=== PATIENT | female | born 1995 | race Caucasian/White ===

== ENCOUNTER → 2019-12-23 17:10 | Observation (INO) | END | disposition home or self-care (01) | LOC: 1NENULAB | PROVIDERS: ADMIT Obstetrics & Gynecology; ATTEND Obstetrics & Gynecology ==

== ENCOUNTER 2020-01-05 02:55 | Inpatient (IN) ==
[~2020-01-05 02:55] MED LIST: *HR* FentaNYL (PF) 100 MCG/2 ML VIAL IVP PRN; Famotidine 20 MG/2 ML VIAL IVP PRN; Lidocaine 1% 20 ML MDV INFILT PRN; Metoclopramide 10 MG/2 ML VIAL IVP PRN; Naloxone 0.4 MG/ML INJ IVP PRN; Ondansetron 4 MG/2 ML VIAL IVP PRN
[2020-01-05] MEDS ORDERED: Oxytocin 20 units/ LR 1000 mL 20 UNIT/1,000 ML BAG IVC SCH (03:00)
[2020-01-05 03:21] LABS: Basophils % 0.3 %; Eosinophils # 0.1 K/mcL (0.0-0.6); Eosinophils % 1.1 %; Hematocrit 34.5 % (35.3-44.9); Hemoglobin 11.5 g/dL (11.5-15.4); Immature Granulocytes % 0.4 % (0-4); Lymphocytes # 2.5 K/mcL (0.6-4.6); Lymphocytes % 22.3 %; Mean Corpuscular HGB Conc 33.3 g/dL (31.6-35.5); Mean Corpuscular Hemoglobin 29.6 pg (28.0-33.3); Mean Corpuscular Volume 88.9 fL (83.0-100.0); Mean Platelet Volume 10.1 fL (9.4-12.4); Monocytes # 0.7 K/mcL (0.0-1.3); Monocytes % 6.2 %; Neutrophils # 7.9 K/mcL (1.6-8.9); Platelet Count 288 K/mcL (140-400); Red Blood Count 3.88 M/mcL (3.82-4.97); Red Cell Distribution Width 12.6 % (11.5-14.5); Segmented Neutrophils % 69.7 %; White Blood Count 11.4 K/mcL (4.3-11.1)
[2020-01-05 03:30] LABS: Amphetamine Screen,Urine Negative ng/mL (Cutoff=1000); Barbiturate Screen,Urine Negative ng/mL (Cutoff=200); Benzodiazepines Screen,Urine Negative ng/mL (Cutoff=200); Cannabinoid Screen,Urine Negative ng/mL (Cutoff = 50); Cocaine Screen,Urine Negative ng/mL (Cutoff= 300); Opiate Screen,Urine Negative ng/mL (Cutoff=300); Phencyclidine Screen,Urine Negative ng/mL (Cutoff=25)
[2020-01-05] MEDS ORDERED: Epidural Premix (fent/bupiv) 110 ML EP ONE (06:40)
[2020-01-05 07:38] LABS: Creatinine,Urine 102 mg/dL; Protein/Creatinine Ratio,Urine 0.16 mg/mg (0.00-0.20)
[2020-01-05 07:41] LABS: Alanine Aminotransferase 8 Units/L (7-52); Aspartate Amino Transferase 19 Units/L (13-39); BUN/Creatinine Ratio 19 (6-26); Blood Urea Nitrogen 14 mg/dL (6-20); Lactate Dehydrogenase 223 Units/L (140-271); Uric Acid 5.2 mg/dL (2.3-7.6); eGFR For African Americans > 60 (> 60); eGFR For Non-African Americans > 60 (> 60)
[2020-01-05] MEDS: Epidural Premix (fent/bupiv) 110 ML EP SCH ×2 (07:41→14:23)
[2020-01-05] MEDS: Ringers Solution, Lactated 1,000 ML IVC SCH ×2 (07:42→13:30)
[2020-01-05] MEDS ORDERED: *HR* FentaNYL (PF) 100 MCG/2 ML VIAL EP ONE (07:56)
[2020-01-05] MEDS ORDERED: EPHEDrine 50 MG/ML VIAL IVP PRN (07:56)
[2020-01-05] MEDS ORDERED: Bupivacaine-MPF 0.25% 10 ML VIAL EP ONE (07:56)
[2020-01-05] MEDS ORDERED: Ropivacaine/PF 0.2% 20 ML VIAL ONE ×2 (12:17→18:11)
[2020-01-05] MEDS ORDERED: *HR* FentaNYL (PF) 100 MCG/2 ML VIAL ONE ×3 (12:18→20:51)
[2020-01-05] MEDS ORDERED: ceFAZolin 2,000 MG in 0.9 % Sodium Chloride 100 ML IVPB ONE (20:47)
[2020-01-05] MEDS ORDERED: Lidocaine/EPI 1:200k 2% PF 20 ML VIAL ONE (20:51)
[2020-01-05] MEDS ORDERED: Azithromycin 500 MG in 0.9 % Sodium Chloride 250 ML IVPB ONE (21:02)
[2020-01-05] MEDS ORDERED: Ringers Solution, Lactated 1,000 ML ONE (21:11)
[2020-01-05] MEDS ORDERED: *HR* Morphine Sulfate/PF 10 MG/10 ML AMPUL ONE (21:12)
[2020-01-05] MEDS ORDERED: Ondansetron 4 MG/2 ML VIAL ONE (21:18)
[2020-01-05] MEDS ORDERED: *HR* Oxytocin 10 UNIT/ML VIAL IM ONE ×2 (21:24)
[2020-01-05] MEDS ORDERED: *HR* Meperidine 25 MG/ML SYRINGE IVP PRN (21:39)
[2020-01-05] MEDS ORDERED: *HR* HYDROmorphone PF 0.5 MG/0.5 ML SYRINGE IVP PRN (21:39)
[2020-01-05] MEDS ORDERED: Naloxone 0.4 MG/ML INJ IVP PRN (21:39)
[2020-01-05] MEDS ORDERED: Ondansetron 4 MG/2 ML VIAL IVP PRN (21:39)
[2020-01-05] MEDS ORDERED: Acetaminophen IV 1,000 MG/100 ML INFUS..BTL ONE (21:40)
[2020-01-06] MEDS ORDERED: Ondansetron 4 MG/2 ML VIAL IVP PRN (00:48)
[2020-01-06] MEDS ORDERED: *HR* OxyCODONE Immed Rel 5 MG TABLET PO PRN (00:48)
[2020-01-06] MEDS ORDERED: Sennosides 8.6 MG TABLET PO PRN (00:48)
[2020-01-06] MEDS ORDERED: Naloxone 0.4 MG/ML INJ IVP PRN (00:48)
[2020-01-06] MEDS ORDERED: Metoclopramide 10 MG/2 ML VIAL IVP PRN (00:48)
[2020-01-06] MEDS ORDERED: Simethicone 80 MG TAB.CHEW PO PRN (00:48)
[2020-01-06] MEDS ORDERED: Oxytocin 20 units/ LR 1000 mL 20 UNIT/1,000 ML BAG IVC SCH (00:48)
[2020-01-06 05:29] LABS: Basophils % 0.2 %; Hematocrit 32.9 % (35.3-44.9); Hemoglobin 10.6 g/dL (11.5-15.4); Immature Granulocytes % 0.7 % (0-4); Lymphocytes % 4.8 %; Mean Corpuscular HGB Conc 32.2 g/dL (31.6-35.5); Mean Corpuscular Hemoglobin 29.1 pg (28.0-33.3); Mean Corpuscular Volume 90.4 fL (83.0-100.0); Mean Platelet Volume 10.1 fL (9.4-12.4); Monocytes # 1.2 K/mcL (0.0-1.3); Monocytes % 5.7 %; Neutrophils # 18.7 K/mcL (1.6-8.9); Platelet Count 278 K/mcL (140-400); Red Blood Count 3.64 M/mcL (3.82-4.97); Red Cell Distribution Width 12.8 % (11.5-14.5); Segmented Neutrophils % 88.6 %
[2020-01-06 05:31] LABS: White Blood Count 21.1 K/mcL (4.3-11.1)
[2020-01-06] MEDS: Ibuprofen 600 MG TABLET PO PRN ×2 (08:48→17:27)
[2020-01-06] MEDS: Prenatal Vit/FA 1 EACH TABLET PO SCH (08:48)
[2020-01-06] MEDS: Acetaminophen 325 MG TABLET PO PRN ×2 (08:48→17:27)
[2020-01-06] MEDS ORDERED: NON-FORMULARY MEDICATION 1 EACH EACH (Pnv Prenatal Plus Multivit Tab 1 TAB) PO SCH (09:00)
[2020-01-07] MEDS: Ibuprofen 600 MG TABLET PO PRN (06:07)
[2020-01-07] MEDS: Prenatal Vit/FA 1 EACH TABLET PO SCH (07:53)
[2020-01-07 09:45] VITALS: BP 128/86
== END 2020-01-07 10:41 | disposition home or self-care (01) | DRG 788 ==
LOC: 1NENULAB → 1NENUOBS 01-06 01:02
PROVIDERS: ADMIT Student in an Organized Health Care Education/Training Program; ATTEND Student in an Organized Health Care Education/Training Program